=== PATIENT | male | born 1960 | race Caucasian/White ===

== ENCOUNTER → 2023-06-14 09:02 | Outpatient (REF) | payer BC, SELFPAY | LOC: HWRCS 09:02 | PROVIDERS: ATTENDING PHYSICIAN Family Medicine | DX: I50.20 Unspecified systolic (congestive) heart failure (principal); I42.8 Other cardiomyopathies; Z87.891 Personal history of nicotine dependence | CPT/HCPCS: 71271; 93306 ==

== ENCOUNTER → 2023-06-22 11:10 | Outpatient (REF) | payer BC, SELFPAY ==
[2023-06-22 16:27] LABS: ALT (SGPT) 34 U/L (0-50); AST (SGOT) 32 U/L (17-59); Albumin 4.9 g/dl (3.5-5.0); Alkaline Phosphatase 84 U/L (38-126); Blood Urea Nitrogen 26 mg/dl (9-20); Calcium 10.1 mg/dl (8.4-10.2); Carbon Dioxide 24 mmol/L (22-30); Chloride 102 mmol/L (98-107); Glucose 111 mg/dl (70-99); HDL Cholesterol 73 mg/dl; LDL Cholesterol, Calculated 67 mg/dl; Potassium 4.1 mmol/L (3.5-5.1); Sodium 137 mmol/L (135-145); Total Bilirubin 0.8 mg/dl (0.2-1.3); Total Cholesterol 191 mg/dl (50-199); Total Protein 7.8 g/dl (6.3-8.2); Triglyceride 256 mg/dl (10-149); Very Low Density Lipoprotein 51 mg/dl (0-30); eGFR > 60.00
== END ==
LOC: HWLAB 11:10
PROVIDERS: ATTENDING PHYSICIAN Internal Medicine Interventional Cardiology; FAMILY PHYSICIAN Family Medicine
DX: I10 Essential (primary) hypertension (principal); E78.2 Mixed hyperlipidemia
CPT/HCPCS: 36415; 80053; 80061

== ENCOUNTER 2023-09-19 12:25 | Emergency (ER) | payer BC, SELFPAY ==
[2023-09-19 12:31] VITALS: BP 197/103
--- NOTE | 2023-09-19 13:26 | ED.GENMED ---
History of Present Illness
<Isabell Hoffman PA-C - Last Filed: 09/19/23 19:15>
General
Chief Complaint: Chest Pain
Source: patient
Exam Limitations: none
Time Seen by Provider: 09/19/23 12:54
Nursing documentation reviewed up to this point in time: agreed with
History of Present Illness
History of Present Illness:
Patient is a 63-year-old male with history of CHF, hypertension presenting to the emergency department from pain management clinic for evaluation of chest discomfort. Patient states that he had just undergone a nerve ablation on his right upper
back when almost immediately he started with chest discomfort, diaphoresis, and shortness of breath. Patient was taken via EMS to the emergency department for further evaluation. Patient also developed a cough since he has been in the emergency
department. Patient states pain is somewhat worse when he takes a deep breath and feels that he is having mild shortness of breath. Patient was given 100 mcg of fentanyl while in the ambulance and states that this did temporarily improve his pain.
He was also placed on oxygen.
Patient denies any dizziness, lightheadedness, nausea or vomiting. Patient denies any numbness or tingling in upper or lower extremities.
Past History
<Isabell Hoffman PA-C - Last Filed: 09/19/23 19:15>
Past History
ED Past Medical History: CHF, HTN and Other (Cardiomyopathy with ejection fraction of 20%)
ED Past Surgical History: None
Social History
Tobacco: Smoker
Alcohol: Daily
Review of Systems
<Isabell Hoffman PA-C - Last Filed: 09/19/23 19:15>
Review of Systems
Allergies reviewed?: Yes
All Other Systems: ROS reviewed and negative except as documented in HPI and ROS
Phy Exam
<Isabell Hoffman PA-C - Last Filed: 09/19/23 19:15>
Physical Exam
Physical Exam:
Vitals: Hypertensive, otherwise vital signs stable. Afebrile
General: Patient is mildly uncomfortable due to pain. Nontoxic-appearing
Skin: Warm and dry, no rashes or lesions
Head: Normocephalic, atraumatic
Eyes: Sclera nonicteric. EOMs intact. No nystagmus.
Throat: Protecting airway
Neck: Normal ROM, no cervical spine tenderness, no meningismus. No JVD
Cardiac: Regular rate and rhythm, no murmurs. No anterior chest wall tenderness
Pulm: Mild respiratory distress. Clear lung sounds bilaterally. Oxygen saturation 96 on 2L NC on arrival. Small bandage noted to right upper back from ablation.
Abdomen: Abdomen soft. No abdominal tenderness.
Extremities: No evidence of cyanosis or edema. Distal pulses palpable and equal in bilateral upper and lower extremities.
Neuro: AAOx3. CN II-XII intact. No focal neurologic deficits. Sensation fully intact
Psychiatric: Normal affect.
Scores
<Isabell Hoffman PA-C - Last Filed: 09/19/23 19:15>
Heart Score for Chest Pain Patients
STEMI patient?: No
History: Slightly or Non-Suspicious
ECG: Normal
Age: >45 - <65 years
Risk Factors: 1 or 2 Risk Factors
Troponin: </= Normal Limit
Heart Score for Chest Pain Patients: 2
Heart Score Risk: 2.5% MACE over next 6 weeks
Course
<Isabell Hoffman PA-C - Last Filed: 09/19/23 19:15>
Orders/Labs/Results
Orders:
Orders
09/19/23 12:29
EKG [Electrocardiogram (*1)] Urgent
Reason for Study: Chest Pain
09/19/23 12:30
EKG- Treatment ONCE
09/19/23 13:44
HYDROmorphone [Dilaudid] 1 mg IV NOW STA
CR Chest Portable - 1 View Urgent
Comment:
Reason For Exam: right upper back pain s/p ablation
Reason Study Needs to be Portable: Patient Unstable
09/19/23 13:45
Ondansetron Injectable [Zofran] 4 mg IV NOW STA
09/19/23 14:06
Complete Blood Count/With Diff Urgent
Comprehensive Metabolic Panel Urgent
Troponin I Urgent
09/19/23 16:18
CT Chest Pe Study Urgent
Comment: acute onset
Reason For Exam: Right chest pain s/p nerve ablation right back
09/19/23 16:52
HYDROmorphone [Dilaudid] 0.5 mg IV NOW STA
Ketorolac [Toradol] 15 mg IV NOW STA
09/19/23 18:50
Oxycodone [Roxicodone] 5 mg PO NOW STA
Abnormal Lab Results
09/19/23
14:06
WBC 11.5 H 10^3/uL
(4.8-10.8)
MCH 32.8 H pg
(27.0-31.0)
MPV 10.6 H fL
(7.4-10.4)
Abs Immat Gran (auto) 0.1 H 10^3/uL
(0-0.05)
Absolute Neuts (auto) 9.4 H 10^3/uL
(1.4-6.5)
Immature Gran % 0.6 H %
(0-0.5)
Neutrophils % 81.8 H %
(42.2-75.2)
Lymphocytes % 13.5 L %
(20.5-51.1)
BUN 31 H mg/dl
(9-20)
Glucose 124 H mg/dl
(70-99)
ALT 58 H U/L
(0-50)
09/19/23 14:06
07/22/24 14:06
Vital Signs
Blood pressure: 179/97
Initial and Last Documented VS:
Initial Vital Signs
Temp Pulse Resp BP Pulse Ox
97.9 F 59 18 197/103 96
09/19/23 12:31 09/19/23 12:31 09/19/23 12:31 09/19/23 12:31 09/19/23 12:31
Last Documented Vital Signs
Temp Pulse Resp BP Pulse Ox
97.9 F 72 18 163/96 96
09/19/23 12:31 09/19/23 17:59 09/19/23 17:59 09/19/23 17:59 09/19/23 17:59
<Arnie Lackey, DO - Last Filed: 09/19/23 13:47>
Orders/Labs/Results
Orders:
Orders
09/19/23 12:29
EKG [Electrocardiogram (*1)] Urgent
Reason for Study: Chest Pain
09/19/23 12:30
EKG- Treatment ONCE
09/19/23 13:44
HYDROmorphone [Dilaudid] 1 mg IV NOW STA
CR Chest Portable - 1 View Urgent
Comment:
Reason For Exam: right upper back pain s/p ablation
Reason Study Needs to be Portable: Patient Unstable
09/19/23 13:45
Ondansetron Injectable [Zofran] 4 mg IV NOW STA
09/19/23 14:06
Complete Blood Count/With Diff Urgent
Comprehensive Metabolic Panel Urgent
Troponin I Urgent
09/19/23 16:18
CT Chest Pe Study Urgent
Comment: acute onset
Reason For Exam: Right chest pain s/p nerve ablation right back
09/19/23 16:52
HYDROmorphone [Dilaudid] 0.5 mg IV NOW STA
Ketorolac [Toradol] 15 mg IV NOW STA
09/19/23 18:50
Oxycodone [Roxicodone] 5 mg PO NOW STA
Abnormal Lab Results
09/19/23
14:06
WBC 11.5 H 10^3/uL
(4.8-10.8)
MCH 32.8 H pg
(27.0-31.0)
MPV 10.6 H fL
(7.4-10.4)
Abs Immat Gran (auto) 0.1 H 10^3/uL
(0-0.05)
Absolute Neuts (auto) 9.4 H 10^3/uL
(1.4-6.5)
Immature Gran % 0.6 H %
(0-0.5)
Neutrophils % 81.8 H %
(42.2-75.2)
Lymphocytes % 13.5 L %
(20.5-51.1)
BUN 31 H mg/dl
(9-20)
Glucose 124 H mg/dl
(70-99)
ALT 58 H U/L
(0-50)
09/19/23 14:06
09/19/23 14:06
Vital Signs
Initial and Last Documented VS:
Initial Vital Signs
Temp Pulse Resp BP Pulse Ox
97.9 F 59 18 197/103 96
09/19/23 12:31 09/19/23 12:31 09/19/23 12:31 09/19/23 12:31 09/19/23 12:31
Last Documented Vital Signs
Temp Pulse Resp BP Pulse Ox
97.9 F 72 18 163/96 96
09/19/23 12:31 09/19/23 17:59 09/19/23 17:59 09/19/23 17:59 09/19/23 17:59
<Isabell Hoffman PA-C - Last Filed: 09/19/23 19:15>
MDM/Problems Addressed
Differential Diagnosis Includes:
Not limited to: Pneumothorax, hemothorax, dissection, unstable angina
MDM/Problems Addressed:
Patient is a 63-year-old male presenting from Dr. Malagon office with acute onset chest pain and shortness of breath following pain management ablation procedure to right upper back. Patient is hypertensive on arrival, although otherwise vital
signs stable. He is saturating 96 on 2 L nasal cannula. Physical exam as above. Patient is in mild respiratory distress and uncomfortable due to pain. There is a small bandage noted to right upper back from his ablation procedure at pain
management office. Lung sounds are clear bilaterally. Heart regular rate and rhythm. Patient has great and equal distal pulses in upper and lower extremities. No neurologic deficits noted on exam. EKG obtained in triage shows no acute ischemic
changes. Will obtain labs, portable chest x-ray. Will give Dilaudid for pain control.
Labs noted. Mild leukocytosis 11.5, otherwise no clinically significant abnormalities. Troponin normal. Chest x-ray shows no acute process. Patient with initial improvement in pain following Dilaudid although still remains uncomfortable. Given
persistent discomfort and known onset following procedure�will obtain CT chest to rule out any vessel injury.
Chest CT did note a tiny right-sided pneumothorax with no other injuries. Patient has been weaned down on oxygen and is saturating 95 on room air. Will attempt to get patient comfortable from a pain standpoint and plan for discharge. Will monitor
closely. Did discuss with Dr. Trejo who is aware and will follow-up with patient
In to reassess patient. He remains comfortable following pain medication. His oxygen saturation has remained 96 on room air. Given size of pneumothorax and patient's hemodynamic stability�no indication for admission at this time. He will be
discharged with pain management, incentive spirometer, and close return precautions. Patient was made aware to follow-up with primary care provider return to emergency department for repeat chest x-ray in 2 days to ensure pneumothorax improving.
Patient and patient's son comfortable with plan. All questions answered.
Chronic conditions affecting care:
Hypertension
Acute Exacerbation and/or Progression of Chronic Illness:
Acutely hypertensive
<Isabell Hoffman PA-C - Last Filed: 09/19/23 19:15>
*Radiology
Radiology exam reviewed: preliminary read by ED provider and radiology read reviewed
*Pulse Oximetry
Patient hypoxic: no
*EKG
Interpreted by ED Provider?: Yes
EKG Intrepretation Date: 09/19/23
Interpretation: normal
Comparison EKG: changes noted
Heart Rate: 61
Rate: normal
Rhythm: sinus
QRS Pattern: normal QRS
Ischemia: no ischemia
*Director Instructional Material Interpretation
Rate: Director Instructional Material- N/A
*Critical Care Note
Total Time (30-74mins, 75-104mins- exclusive of procedures): Not Applicable
<Isabell Hoffman PA-C - Last Filed: 09/19/23 19:15>
Patient Management
Discussion with other providers: Supervisor [employer]ing (Dr. Trejo)
ED Attending Note
<Isabell Hoffman PA-C - Last Filed: 09/19/23 19:15>
-
Portions of this chart may have been created with voice recognition software.� Occasional wrong word or��sound alike� substitutions may have occurred due to the inherent limitations of voice recognition software.
<Arnie Lackey DO - Last Filed: 09/19/23 13:47>
ED Attending Note
Patient seen and examined by attending physician: Yes
I performed the substantive portion of visit, reviewed & personally made and approve the management plan that is documented in note by myself or JOHN.: Yes
ED Attending Note:
seen with Nhan, acute chest pain/sob after pain management procedure, dressing on left posterior back, looks sob
plan analgesia, stat cxr
Discharge Plan
Departure
Patient Disposition: Home (Routine Discharge)
Date of Disposition: 09/19/23
Time of Disposition: 18:28
Patient with high blood pressure during this ER visit?: Yes
Condition: Good
Covid-19: Not Applicable
Discharge Problem:
Pneumothorax on right
Instructions: Pneumothorax (collapsed lung)
Prescriptions:
New
oxycodone 5 mg tablet
5 mg PO Q6H PRN (Reason: Pain) Qty: 8 0RF
No Action
cyanocobalamin (vitamin B-12) 1,000 mcg Tablet
1,000 mcg PO DAILY
furosemide 40 mg Tablet
40 mg PO BID AT 0800,1600 30 Days Qty: 60 0RF
spironolactone 25 mg Tablet
12.5 mg PO DAILY 30 Days Qty: 15 0RF
aspirin 81 mg Tablet,Chewable
81 mg PO DAILY 30 Days Qty: 30 0RF
folic acid 1 mg Tablet
1 mg PO DAILY 30 Days Qty: 30 0RF
metoprolol succinate 25 mg Tablet Extended Release 24 Hr
12.5 mg PO BID 30 Days Qty: 30 0RF
Farxiga 10 mg Tablet
10 mg PO DAILY 30 Days Qty: 30 0RF
magnesium 200 mg tablet
200 mg PO DAILY 30 Days Qty: 30 0RF
nicotine 21-14-7 mg/24 hr patch, TD daily, sequential
1 patch transdermal DAILY Qty: 56 0RF
Rx Instructions:
1 patch transdermally;
lisinopril 5 mg Tablet
5 mg PO DAILY 30 Days Qty: 30 0RF
prednisone 20 mg tablet
40 mg PO DAILY 5 Days Qty: 10 0RF
famotidine [Pepcid] 20 mg tablet
20 mg PO BID Qty: 10 0RF
Referrals:
Tai Trejo MD [Active] - Call in 1-3 days for appt
Moy Lawler MD [Family Provider] - Follow up in 2-3 days
Activity Restrictions/Additional Instructions:
RETURN TO THE EMERGENCY DEPARTMENT WITH ANY FEVERS, INTRACTABLE PAIN, WORSENING SHORTNESS OF BREATH, CHEST PAIN, PERSISTENT COUGH, WORSENING IN CURRENT SYMPTOMS, OR ANY OTHER CONCERNS
-As discussed�your CT scan showed a small pneumothorax in your right lung. You should take Tylenol and/or Motrin as needed for discomfort. A prescription for oxycodone has been sent to her pharmacy that you can take as needed for severe pain.
This may cause drowsiness and you should not take prior to driving.
-You have been sent home with an incentive spirometer. You should be sure to use this at least twice an hour to inflate your lungs. Please return to the emergency department with any signs of pneumonia or difficulty breathing.
-As discussed�it is imperative that you follow-up with your primary care provider in 2 days for a repeat chest x-ray. You can also return to the emergency department for chest x-ray if you are unable to get into your primary care provider.
-Follow-up with Dr. Trejo for further evaluation/management of your pain.
Monitor your symptoms closely return with any acute worsening/new symptoms
Interventions
Interventions:
*Risk Screen - Suicide Last Done: 09/19/23 12:31
*General Assessment Last Done: 09/19/23 12:31
*Neglect/Abuse Screening Last Done: 09/19/23 12:31
ED- Fall Risk Assessment Last Done: 09/19/23 12:55
*ED COVID-19 Vaccine History Last Done: 09/19/23 12:31
*Nursing Disposition Last Done: 09/19/23 18:57
ED- Cardiac Assessment Last Done: 09/19/23 12:55
Discharge Date and Time
Print Language: CITIZEN [place]
[2023-09-19] MEDS: ZOFRAN 4 MG IV (14:05)
[2023-09-19] MEDS: DILAUDID 1 MG IV (14:06)
[2023-09-19 14:07] VITALS: BP 179/110
[2023-09-19 14:23] LABS: % Basophils 0.4 % (0-2); % Eosinophils 0.3 % (0-6); % Immature Granulocytes 0.6 % (0-0.5); % Lymphocytes 13.5 % (20.5-51.1); % Monocytes 3.4 % (1.7-9.3); % Neutrophils 81.8 % (42.2-75.2); Absolute Basophils 0.1 10^3/uL (0-0.2); Absolute Immature Granulocytes 0.1 10^3/uL (0-0.05); Absolute Lymphocytes 1.6 10^3/uL (1.2-3.4); Absolute Monocytes 0.4 10^3/uL (0.1-0.6); Absolute Neutrophils 9.4 10^3/uL (1.4-6.5); Hematocrit 43.8 % (39.0-52.0); Hemoglobin 15.7 g/dL (13.0-18.0); Mean Corp Hgb Conc. 35.8 g/dL (33.0-37.0); Mean Corpuscular Hgb 32.8 pg (27.0-31.0); Mean Corpuscular Volume 91.6 fL (80.0-94.0); Mean Platelet Volume 10.6 fL (7.4-10.4); Nucleated Red Blood Cells % 0 % (-); Platelet Count 292 10^3/uL (130-400); Red Blood Cell Count 4.78 10^6/uL (4.70-6.10); Red Cell Dist. Width 13.7 % (11.5-14.5); White Blood Cell Count 11.5 10^3/uL (4.8-10.8)
[2023-09-19 14:42] LABS: ALT (SGPT) 58 U/L (0-50); AST (SGOT) 52 U/L (17-59); Albumin 4.6 g/dl (3.5-5.0); Alkaline Phosphatase 108 U/L (38-126); Blood Urea Nitrogen 31 mg/dl (9-20); Carbon Dioxide 25 mmol/L (22-30); Chloride 103 mmol/L (98-107); Glucose 124 mg/dl (70-99); Potassium 4.7 mmol/L (3.5-5.1); Sodium 137 mmol/L (135-145); Total Bilirubin 0.5 mg/dl (0.2-1.3); eGFR > 60.00
[2023-09-19 14:49] LABS: Troponin I < 0.012 ng/ml
[2023-09-19 16:00] VITALS: BP 179/97
[2023-09-19] MEDS: DILAUDID 0.5 MG IV (17:09)
[2023-09-19] MEDS: TORADOL 15 MG IV (17:09)
[2023-09-19 17:59] VITALS: BP 163/96
[2023-09-19] MEDS: ROXICODONE 5 MG PO (18:55)
== END 2023-09-19 19:12 | disposition home or self-care (01) ==
LOC: EMR 12:25
PROVIDERS: Physician Assistant; EMERGENCY PHYSICIAN Emergency Medicine; FAMILY PHYSICIAN Family Medicine
DX: J93.9 Pneumothorax, unspecified (principal); R07.89 Other chest pain; R06.02 Shortness of breath; M54.6 Pain in thoracic spine; R61 Generalized hyperhidrosis; R05.9 Cough, unspecified; I11.0 Hypertensive heart disease with heart failure; I50.9 Heart failure, unspecified; I42.9 Cardiomyopathy, unspecified; F41.9 Anxiety disorder, unspecified; F17.200 Nicotine dependence, unspecified, uncomplicated; Z98.890 Other specified postprocedural states; Z88.8 Allergy status to other drugs, medicaments and biological substances; Z79.82 Long term (current) use of aspirin
CPT/HCPCS: 99285; 96374; 96375 ×2; 96376; 71045; 71275; 80053; 84484; 85025; 93005; Q9967

== ENCOUNTER → 2023-09-21 12:04 | Outpatient (REF) | payer BC, SELFPAY | LOC: RAD 12:04 | PROVIDERS: ATTENDING PHYSICIAN Family Medicine; FAMILY PHYSICIAN Family Medicine; REFERRING PHYSICIAN Psychiatry & Neurology Neurology | DX: J93.9 Pneumothorax, unspecified (principal) | CPT/HCPCS: 71046 ==